=== PATIENT | female | born 1975 | race Caucasian/White ===

== ENCOUNTER 2024-11-07 20:37 | Emergency (ER) | payer BC ==
[~2024-11-07] VITALS: Ht 162.6 cm; Wt 147.7 kg
[2024-11-07 20:52] VITALS: TEMP 96.2
[2024-11-07 23:25] LABS: BASO % 0.4 % (0.0-1.0); EOS # 0.2 10^3/uL (0.0-0.5); EOS % 1.8 % (0.0-3.0); HEMATOCRIT 45.5 % (36.0-47.0); HEMOGLOBIN 14.9 g/dl (12.0-15.5); LYMPH # 2.1 10^3/uL (1.5-5.0); LYMPH % 21.6 % (24.0-44.0); MEAN CORPUSCULAR HEMOGLOBIN 28.5 pg (27.0-33.0); MEAN CORPUSCULAR HGB CONC 32.7 g/dl (32.0-36.5); MEAN CORPUSCULAR VOLUME 87.2 fl (80.0-96.0); MONO # 0.7 10^3/uL (0.0-0.8); MONO % 6.6 % (2.0-8.0); NEUTROPHILS # 6.9 10^3/uL (1.5-8.5); NEUTROPHILS % 69.4 % (36.0-66.0); PLATELET COUNT, AUTOMATED 227 10^3/uL (150-450); RED BLOOD COUNT 5.22 10^6/uL (4.00-5.40); WHITE BLOOD COUNT 9.9 10^3/uL (4.0-10.0)
[2024-11-07 23:46] LABS: ERYTHROCYTE SEDIMENTATION RATE 45 mm/hr (0-30)
[2024-11-07 23:57] LABS: ALBUMIN 3.6 G/DL (3.2-5.2); BILIRUBIN,DIRECT 0.2 MG/DL (<0.4); BILIRUBIN,TOTAL 0.7 MG/DL (0.3-1.2); C REACTIVE PROTEIN QUANTITATIV 1.53 MG/DL (<1.0); CALCIUM LEVEL 9.5 MG/DL (8.5-10.1); CREATININE FOR GFR 1.15 MG/DL (0.55-1.30); GLOMERULAR FILTRATION RATE 53.2 (>51); POTASSIUM SERUM 3.9 MMOL/L (3.5-5.1); TOTAL PROTEIN 7.8 G/DL (5.7-8.2)
[2024-11-08] MEDS ORDERED: CEPH500T PO (01:33)
[2024-11-08] MEDS: CEPHALEXIN 500 MG CAP PO ONE (02:38)
[2024-11-08 02:46] VITALS: BP 156/87; O2SAT 98
== END 2024-11-08 02:47 | disposition home or self-care (01) ==
LOC: M ED 20:37
DX: L03.115 Cellulitis of right lower limb (principal); L03.116 Cellulitis of left lower limb; E03.9 Hypothyroidism, unspecified; E11.9 Type 2 diabetes mellitus without complications; F12.10 Cannabis abuse, uncomplicated; Z79.2 Long term (current) use of antibiotics